=== PATIENT | female | born 1975 | race Caucasian/White ===

== ENCOUNTER 2019-02-14 08:22 | Day surgery (SDC) | payer OTHER ==
[2019-02-14] MEDS ORDERED: DEXAMETHASONE SODIUM PHOSPHATE 10 MG/ML VIAL ONE (08:48)
[2019-02-14] MEDS ORDERED: MIDAZOLAM HCL 2 MG/2 ML VIAL ONE (08:48)
[2019-02-14] MEDS ORDERED: LIDOCAINE HCL 2% PF 100MG/5ML VIAL IJ ONE (08:48)
[2019-02-14] MEDS ORDERED: ONDANSETRON HCL/PF 4 MG/ 2ML VIAL ONE (08:48)
[2019-02-14] MEDS ORDERED: LIDOCAINE HCL 1% PF 300MG/30ML VIAL ONE (08:48)
[2019-02-14] MEDS ORDERED: SODIUM CHLORIDE IRRIG SOLUTION 3,000 ML IRRIG.SOLN IR ONE (08:48)
[2019-02-14] MEDS ORDERED: CLINDAMYCIN PHOSPHATE 900 MG/6 ML VIAL ONE (08:48)
[2019-02-14] MEDS ORDERED: fentaNYL CITRATE/PF 100 MCG/2 ML INJ. ONE ×3 (08:48→12:26)
[2019-02-14] MEDS ORDERED: ROCURONIUM BROMIDE 10 MG/ML 5ML VIAL ONE (08:48)
[2019-02-14] MEDS ORDERED: LACTATED RINGERS 1,000 ML IV.SOLN IV ONE ×2 (08:48)
[2019-02-14] MEDS ORDERED: HYDROmorphone HCL/PF 1 MG/ML VIAL ONE ×2 (08:48→11:58)
[2019-02-14] MEDS ORDERED: PROPOFOL 200 MG/20 ML VIAL IV ONE (08:48)
[2019-02-14] MEDS ORDERED: SUGAMMADEX SODIUM 200 MG/2 ML VIAL IV ONE (08:48)
[2019-02-14] MEDS ORDERED: SCOPOLAMINE HYDROBROMIDE 1.5MG/72HR PATCH TD ONE (08:48)
[2019-02-14] MEDS ORDERED: BUPIV. HCL 0.25% (2.5MG/ML)/EPI. (1:200,000) PF 10 ML VIAL IM ONE (08:48)
[2019-02-14] MEDS ORDERED: SEVOFLURANE 250 ML LIQUID IH ONE (08:48)
[2019-02-14] MEDS ORDERED: FAMOTIDINE 20 MG/2 ML VIAL IV ONE (08:48)
[2019-02-14] MEDS ORDERED: LABETALOL HCL 20 MG/4 ML SYRINGE IV ONE (08:48)
[2019-02-14] MEDS ORDERED: PROMETHAZINE HCL 25 MG/ML VIAL ONE ×2 (08:48→12:05)
[2019-02-14] MEDS ORDERED: 0.9 % SODIUM CHLORIDE 1,000 ML IV ONE (13:43)
--- NOTE | 2019-02-18 15:22 | Operative Note ---
PREOPERATIVE DIAGNOSIS: 1. Morbid obesity. 2. Gastroesophageal reflux disease. 3. Hyperlipidemia. POSTOPERATIVE DIAGNOSIS: 1. Morbid obesity. 2. Gastroesophageal reflux disease. 3. Hyperlipidemia. 4. Extensive upper and midabdominal adhesions. PROCEDURES PERFORMED: 1. Extensive laparoscopic lysis of adhesions. 2. Laparoscopic vertical sleeve gastrectomy. 3. Upper gastrointestinal endoscopy. SURGEON: Edis Mcfadden M.D. INDICATIONS FOR PROCEDURE: Ms. Yao is a 43-year-old female who has a history of multiple previous open abdominal surgeries. The patient has features of morbid obesity. She was noted to have a weight of 245 pounds with a BMI of 47 with the above-listed comorbidities. The patient was advised laparoscopic vertical sleeve gastrectomy and lysis of adhesions. The patient showed understanding and agreed to proceed. DESCRIPTION OF PROCEDURE: After explaining to the patient in detail and informed consent was obtained, the patient was identified in the preoperative holding area. The patient was transferred to the operating room and was placed in supine position. Sequential compressive devices were placed for DVT prophylaxis. Preoperative antibiotics were given. After induction of anesthesia, the abdomen was prepped and draped in a sterile fashion. Through a left upper quadrant 1-cm incision, and using Optiview technique, the peritoneal cavity was entered and pneumoperitoneum was created. Thereafter, under direct vision, a 5-mm trocar was placed in the left flank as the patient was noted to have extensive upper abdominal adhesions and I did not have space to place another port. I started to do adhesiolysis using LigaSure and blunt dissection. Lysis of adhesions was continued for at least 35 minutes to facilitate subsequent placement of the ports. Once all the adhesiolysis was performed, I then placed a 5-mm trocar in the left midabdomen, a 15-mm trocar was placed in the right midabdomen, and another 5-mm trocar was placed in the right subcostal region. Through a 1-cm incision in the epigastrium, a Jim retractor was introduced and the left lobe of the liver was retracted. On initial inspection, the patient did not have any evidence of hiatal hernia. Using LigaSure, I then took down the gastroepiploic vessels along the greater curvature of the stomach. I then continued dissection superiorly. The short gastric vessels were taken down. The gastrophrenic ligament was divided and the Angle of His was mobilized. Distally, the gastroepiploic vessels were taken down up to about 4 cm proximal to the pylorus. At this point, a #36 [place] orogastric ViSiGi tube was inserted into the stomach and using this bougie as a guide, the stomach was divided in a vertical fashion with multiple Endo KIRK Covidien Black Load Staplers. The first firing was directed outwards towards the greater curvature. Subsequent firings were directed towards the Angle of His to create a loose sleeve around the #36 [place] bougie. At this point, the orogastric tube was removed. An upper GI endoscopy was performed at this point. The scope was introduced into the esophagus and was gradually advanced into the stomach. The sleeve appeared to be of adequate size. The stomach was insufflated with air and an air leak test was performed by irrigation of fluid along the staple line. There was no leak noted. The scope was then removed. Absolute hemostasis was ensured. The abdomen was then deflated and the incisions were closed with 4-0 Monocryl. Dermabond was applied. The patient was stable at the end of the procedure. The patient was awakened from anesthesia and was transferred to the recovery room in stable condition. ESTIMATED BLOOD LOSS: Approximately 20 mL. CONDITION OF THE PATIENT: Stable. FLUIDS GIVEN: Per Anesthesia note. SPECIMEN(S) SENT: Sleeve gastrectomy specimen. COMPLICATIONS: None. ANESTHESIA: General. Edis Mcfadden M.D. JL/aileen (Please copy [facility] provider when applicable) Job #[id number] [place]
== END 2019-02-14 13:14 | disposition other institution (70) ==
LOC: OPSURG 08:22
PROVIDERS: ATTEND Surgery
DX: E66.01 Morbid (severe) obesity due to excess calories (principal); K21.9 Gastro-esophageal reflux disease without esophagitis; K66.0 Peritoneal adhesions (postprocedural) (postinfection); E78.5 Hyperlipidemia, unspecified; Z68.42 Body mass index [BMI] 45.0-49.9, adult
CPT/HCPCS: 43235; 43775; J1170; J2001; J2250; J2405; J2550; J2704; J3010; A9270-GY; J7030; J7120

== ENCOUNTER 2019-02-14 13:15 | Inpatient (IN) | payer OTHER ==
[2019-02-14] MEDS ORDERED: MORPHINE SULFATE 2 MG/ML VIAL ONE (15:17)
[2019-02-14] MEDS ORDERED: ONDANSETRON HCL/PF 4 MG/ 2ML VIAL IVP PRN (16:23)
[2019-02-14] MEDS ORDERED: MORPHINE SULFATE 2 MG/ML VIAL IV PRN (16:23)
[2019-02-14] MEDS ORDERED: ACETAMINOPHEN 1,000 MG/100 ML INJ IV PRN (16:23)
[2019-02-14] MEDS: CLINDAMYCIN PHOSPHATE/D5W 600 MG/50 ML PIGGYBACK IV SCH (18:46)
[2019-02-14] MEDS: 0.9 % SODIUM CHLORIDE 1,000 ML IV SCH (20:43)
[2019-02-14] MEDS ORDERED: IPRATROPIUM/ALBUTEROL SULFATE 3 ML AMPUL.NEB NEB PRN (20:50)
[2019-02-14] MEDS: FAMOTIDINE 20 MG/2 ML VIAL IV SCH (23:16)
[2019-02-15] MEDS: HYDROcodone-ACETAMIN 7.5-325/15ML SOLN UD CUP PO PRN ×5 (02:16→17:58)
[2019-02-15] MEDS: 0.9 % SODIUM CHLORIDE 1,000 ML IV SCH ×3 (03:01→18:00)
[2019-02-15] MEDS: CLINDAMYCIN PHOSPHATE/D5W 600 MG/50 ML PIGGYBACK IV SCH (03:31)
[2019-02-15 06:53] LABS: eGFR (Non-African) > 60
[2019-02-15 06:54] LABS: BASOPHILS % 0.5 % (0.0-1.5); NEUTROPHILS # 11.4 # k/uL (1.4-7.7)
--- NOTE | 2019-02-15 07:46 | Inpatient Progress Note ---
Subjective - Required Recertification Statement I anticipate X number of days because-include discharge plan: 1 - Review of Systems Events since last encounter: Patient is lying in bed this morning awake. She states that she did not get much sleep. She was having a lot of discomfort last night. She states that pain is improving. She has had some nausea and moderate discomfort from the gas. She denies any chest pain or shortness of breath. She has been up ambulating in the halls and using incentive spirometer while awake. General: Denies: Chills, Night Sweats HEENT: Denies: Head Aches, Visual Changes, Dysphasia Pulmonary: Denies: Dyspnea Cardiovascular: Denies: Chest Pain, Light Headedness Gastrointestinal: Nausea, Vomiting, Abdominal Pain (s/p LSG) Genitourinary: Denies: Dysuria Musculoskeletal: Denies: Back Pain Neurological: Denies: Weakness Objective - Exam Vitals and I&O: Vital Signs Temp 100.7 F H 02/15/19 05:45 Pulse 77 02/15/19 05:45 Resp 22 02/15/19 05:45 BP 130/71 02/15/19 05:45 Pulse Ox 97 02/15/19 06:00 Intake & Output 02/14/19 02/14/19 02/15/19 11:59 23:59 11:59 Output Total 775 Balance -775 Output: Urine 775 General: Alert, Oriented to Person, Oriented to Place, Oriented to Time, Cooperative, Mild distress, Morbidly Obese HEENT: Atraumatic, PERRLA, Mouth Mucous membr. moist/Connell, Nose Mucous membr. moist/Connell Neck: No JVD, +2 carotid pulse wo bruit Lungs: Clear to auscultation, Normal air movement, Speaks full Sentences Cardiovascular: Normal S1, Normal S2, Tachycardia Abdomen: Soft, Decreased Bowel Sounds Extremities: No edema, Normal pulses, No tenderness/swelling Skin: Warm, Dry, Pale, Other (incisions x5 intact without redness/erythema- skin adhesive intact) Neurological: Normal speech, Strength Equal Bilat, Sensation intact Psych/Mental Status: Mental status NL, Mood NL, Appropriate Affect, Intact Judgment - Results Results: Laboratory Results WBC 14.90 K/ul (4.00-12.00) H 02/15/19 05:00 RBC 3.64 M/ul (3.90-5.20) L 08/23/19 05:00 Hgb 11.3 g/dL (11.5-16.0) L 02/15/19 05:00 Hct 33.5 % (34.5-46.5) L 02/15/19 05:00 MCV 92.0 fl (80.0-100.0) 02/15/19 05:00 MCH 31.0 pg (28.0-34.0) 02/15/19 05:00 MCHC 33.6 g/dL (30.0-36.0) 02/15/19 05:00 RDW 13.5 % (11.3-14.3) 02/15/19 05:00 Plt Count 424 K/mm3 (130-400) H 02/15/19 05:00 Neut % (Auto) 76.5 % (39.0-79.0) 02/15/19 05:00 Lymph % (Auto) 15.3 % (16.0-50.0) L 02/15/19 05:00 [place] % (Auto) 7.0 % (0.0-11.0) 02/15/19 05:00 Eos % (Auto) 0.7 % (0.0-6.8) 02/15/19 05:00 Baso % (Auto) 0.5 % (0.0-1.5) 02/15/19 05:00 Neut # (Auto) 11.4 # k/uL (1.4-7.7) H 02/15/19 05:00 Lymph # (Auto) 2.3 # k/uL (0.6-4.0) 02/15/19 05:00 [place] # (Auto) 1.0 # k/uL (0.0-0.9) H 02/15/19 05:00 Eos # (Auto) 0.1 # k/uL (0.0-0.6) 02/15/19 05:00 Baso # (Auto) 0.1 # k/uL (0.0-0.5) 02/15/19 05:00 Sodium 140 mmol/L (137-145) 02/15/19 05:00 Potassium 3.9 mmol/L (3.5-5.1) 02/15/19 05:00 Chloride 101 mmol/L (98-107) 02/15/19 05:00 Carbon Dioxide 23 mmol/L (22-30) 02/15/19 05:00 Anion Gap 19.9 02/15/19 05:00 BUN 6 mg/dL (7-17) L 02/15/19 05:00 Creatinine 0.44 mg/dL (0.52-1.04) L 02/15/19 05:00 Est GFR ( Amer) > 60 (60-) 02/15/19 05:00 Est GFR (Non-Af Amer) > 60 (60-) 02/15/19 05:00 Glucose 224 mg/dL (74-106) H 02/15/19 05:00 Calcium 9.7 mg/dL (8.4-10.2) 02/15/19 05:00 Total Bilirubin 0.5 mg/dL (0.2-1.3) 02/15/19 05:00 AST 88 U/L (15-46) H 02/15/19 05:00 ALT 71 U/L (13-69) H 02/15/19 05:00 Alkaline Phosphatase 120 U/L (38-126) 02/15/19 05:00 Total Protein 7.4 g/dL (6.3-8.2) 02/15/19 05:00 Albumin 4.5 g/dL (3.5-5.0) 02/15/19 05:00 Assessment/Plan - Assessment/Plan (1) Anxiety and depression Status: Acute Current Visit: Yes Assessment: Will monitor closely; stable at this time Plan: Will continue to hold meds at this time (2) COPD (chronic obstructive pulmonary disease) Status: Acute Current Visit: Yes Assessment: Patient has SOA with exertion d/t obesity; LCTA; No SOA at rest Plan: Duonebs ordered as needed; will continue to monitor; will check pulse ox (3) Hypertension Status: Acute Current Visit: Yes Qualifiers: Hypertension type: essential hypertension Qualified Code(s): I10 - Essential (primary) hypertension Assessment: Blood pressures are slightly elevated 138/78; denies any chest pain Plan: Will continue to hold medications at this time (4) Morbid obesity due to excess calories Status: Acute Current Visit: Yes Assessment: Patient tolerating ice chips and water; some nausea Plan: Will advance diet to clear liquids today (5) Nausea and vomiting Status: Acute Current Visit: Yes Assessment: Patient still experiencing some nausea- no vomiting Plan: Will continue with IV Zofran and phenergan; IV pepcid BID (6) Status post gastric surgery Status: Acute Current Visit: Yes Assessment: Patient experiencing nausea; has been ambulating, wearing SCDs while in bed, using incentive spirometry, patient receiving lovenox to prevent DVT Plan: Patient getting IV fluids for hydration, IV pain meds, and IV antiemetics. Lovenox and SCDs to help prevent DVTs, IS and frequent ambulation will be implemented. Patient eating ice chips and will advance diet to clear liquids as tolerated once nausea and vomiting is controlled. Will continue with Pepcid IV BID for GI upset
[2019-02-15] MEDS: ENOXAPARIN SODIUM 40 MG/0.4 ML DISP.SYRIN SQ SCH (09:14)
[2019-02-15] MEDS: FAMOTIDINE 20 MG/2 ML VIAL IV SCH ×2 (09:14→20:56)
[2019-02-15] MEDS: ALBUTEROL 90MCG/PUFF INHALER IH SCH ×3 (09:46→23:16)
[2019-02-15] MEDS: Non-Formulary 1 EACH (Budesonide/Formoterol Fumarate [Symbicort 160-4.5 Mcg Inhaler] 2 PUF IH SCH ×2 (10:22→23:16)
[2019-02-15] MEDS ORDERED: KETOROLAC TROMETHAMINE 30 MG/1ML VIAL IV PRN (11:00)
[2019-02-15] MEDS: PROMETHAZINE HCL 25 MG in 0.9 % SODIUM CHLORIDE 50 ML IV PRN ×2 (13:10→21:03)
--- NOTE | 2019-02-15 14:03 | History and Physical Report ---
History of Present Illnes - History of Present Illness Reason for Visit: S/P LSG History of Present Illness: Patient is a 43-year-old female who has tried multiple diets and exercise programs with no success. She has always struggled with her weight which has worsened since having children. Patient and surgeon decided to proceed with gastric sleeve procedure. Procedure went well- She will be admitted and monitored s/p surgical intervention. Patient has been on a liquid diet prior to surgery so she is a risk of dehydration s/p surgery. She will be admitted for IV hydration to help hydrate patient until she is able to tolerate a sufficient oral intake, will treat pain with IV medication until patient is able to tolerate oral meds, IV antiemetics to help reduce episodes of nausea and/or vomiting. Patient will be monitored closely using telemetry s/p surgery d/t HTN. Will encourage incentive spirometer for COPD and will monitor patient closely. Patient appears very uncomfortable s/p surgery. - Past Medical History Cardiac: HTN Pulmonary: Asthma, COPD Gastrointestinal: GERD Psych: Anxiety, Depression, Other (ADHD) Grav: 11 Para: 6 Ab: 5 - Past Surgical History Past Surgical History: Hysterectomy, Hernia Repair (ventral), Tubal Ligation, Other (D&C X5, Liver surgery, sinus surgery) - Past Family History Mother Family History: Cancer, CAD, CVA, Hypertension Father Family History: - Past Social History Smoke: Quit (11/2018) Alcohol: None Drugs: Marijuana Lives: With Family Domestic Violence: Negative - Health Maintenance Health Maintenance: Cholesterol, Mammogram Influenza Vaccine: No Pneumonia Vaccine: No Resuscitation Status: Resusciation Status Resuscitation Status Full Code Review of Systems - Review of Systems Constitutional: negative: Fever, Chills Eyes: negative: pain, vision change ENT: negative: Ear Pain, Ear Discharge, Throat Pain Respiratory: SOB with Excertion. negative: Cough Cardiovascular: negative: Chest Pain, Light Headedness Gastrointestinal: Nausea, Vomiting, Abdominal Pain (s/p surgery) Genitourinary: negative: Dysuria Musculoskeletal: Back Pain Skin: negative: Rash Neurological: Weakness - Medications/Allergies Allergies/Adverse Reactions: Allergies Allergy/AdvReac Type Severity Reaction Status Date / Time Penicillins Allergy Verified 02/14/19 13:15 Current Inpatient Medications: Current Inpatient Medications Acetaminophen (Ofirmev) 1,000 mg IV Q6H PRN PRN Reason: Mild Pain (Score 1-4) Hydrocodone Bitart/Acetaminophen (Hycet 7.5-325mg/15 Ml Ud Cup) 15 ml PO Q4H PRN PRN Reason: Moderate Pain (Score 5-7) Stop: 02/18/19 16:22 Last Admin: 02/15/19 13:55 Dose: 15 ml Albuterol Sulfate (Ventolin Hfa) 1 puff IH Q6H [facility] Stop: 03/17/19 06:59 Last Admin: 02/15/19 13:47 Dose: 1 puff Albuterol/Ipratropium (Duoneb) 3 ml NEB Q4 PRN PRN Reason: Wheezing Stop: 03/16/19 20:49 Enoxaparin Sodium (Lovenox) 40 mg SQ DAILY [facility] Stop: 03/01/19 20:52 Last Admin: 02/15/19 09:14 Dose: 40 mg Famotidine (Pepcid) 20 mg IV BID [facility] Stop: 03/16/19 20:59 Last Admin: 02/15/19 09:14 Dose: 20 mg Sodium Chloride (Normal Saline) 1,000 mls @ 150 mls/hr IV Q8H [facility] Last Admin: 02/15/19 10:47 Dose: 150 mls/hr Promethazine HCl 25 mg/ Sodium (Chloride) 51 mls @ 204 mls/hr IV Q6H PRN PRN Reason: Nausea / Vomiting Stop: 02/15/19 23:59 Last Admin: 02/15/19 13:10 Dose: 204 mls/hr Ketorolac Tromethamine (Toradol) 30 mg IV Q6H PRN PRN Reason: For Mild Pain Stop: 02/19/19 10:59 Miscellaneous (Budesonide/Formoterol Fumarate [Symbicort 160-4.5 Mcg Inhaler]) 2 puff IH BID [facility] Stop: 03/17/19 08:59 Last Admin: 02/15/19 10:22 Dose: 2 puff Morphine Sulfate () 2 mg IV Q2H PRN PRN Reason: Severe Pain (Score 8-10) Last Admin: 02/14/19 19:56 Dose: 2 mg Ondansetron HCl (Zofran) 4 mg IVP Q6H PRN PRN Reason: Nausea / Vomiting Stop: 02/15/19 23:59 Exam - Exam Vital Signs: Vital Signs (72 hours) 02/14/19 02/14/19 02/14/19 20:50 21:43 22:45 Temperature 98.4 F Pulse Rate 88 Pulse Rate [ 64 64 Right] Respiratory 22 22 Rate Blood Pressure 144/90 [Right Arm] O2 Sat by Pulse 94 94 Oximetry 02/15/19 02/15/19 02/15/19 00:50 02:00 04:00 Temperature 100.8 F H Pulse Rate Pulse Rate [ 80 Right] Respiratory 22 Rate Blood Pressure 150/67 [Right Arm] O2 Sat by Pulse 98 95 95 Oximetry 02/15/19 02/15/19 02/15/19 05:32 05:45 06:00 Temperature 100.7 F H Pulse Rate Pulse Rate [ 80 77 Right] Respiratory 22 22 Rate Blood Pressure 130/71 [Right Arm] O2 Sat by Pulse 95 97 Oximetry 02/15/19 02/15/19 02/15/19 09:06 10:00 13:27 Temperature 98.8 F 97.1 F L Pulse Rate Pulse Rate [ 61 99 H Right] Respiratory 18 18 Rate Blood Pressure 128/59 138/71 [Right Arm] O2 Sat by Pulse 95 95 99 Oximetry General: Alert, Oriented to Person, Oriented to Place, Oriented to Time, Cooperative, Moderate distress, Morbidly Obese HEENT: Atraumatic, PERRLA, Mouth Mucous membr. moist/Peerless, Nose Mucous membr. moist/Peerless Neck: Normal Range of Motion Carotids: No bruit Lungs: Clear to auscultation, Normal air movement Cardiovascular: Normal S1, Normal S2, Tachycardia Peripheral Edema: None Peripheral Pulses: 2+ Abdomen: Soft, Decreased Bowel Sounds Integumentary: Warm, Dry, Pale, Other (Incision x 5 without redness/erythema- skin adhesive intact) Extremities: No edema, Normal pulses, No tenderness/swelling Neurological: Normal speech, Sensation intact, Generalized Weakness Psych/Mental Status: Mental status NL, Mood NL, Appropriate Affect, Intact Judgment - Laboratory Results Laboratory Results: Laboratory Results 02/15/19 02/15/19 05:00 05:00 WBC 14.90 H RBC 3.64 L Hgb 11.3 L Hct 33.5 L MCV 92.0 MCH 31.0 MCHC 33.6 RDW 13.5 Plt Count 424 H Neut % (Auto) 76.5 Lymph % (Auto) 15.3 L [place] % (Auto) 7.0 Eos % (Auto) 0.7 Baso % (Auto) 0.5 Neut # (Auto) 11.4 H Lymph # (Auto) 2.3 [place] # (Auto) 1.0 H Eos # (Auto) 0.1 Baso # (Auto) 0.1 Sodium 140 Potassium 3.9 Chloride 101 Carbon Dioxide 23 Anion Gap 19.9 BUN 6 L Creatinine 0.44 L Est GFR ( Amer) > 60 Est GFR (Non-Af Amer) > 60 Glucose 224 H Calcium 9.7 Total Bilirubin 0.5 AST 88 H ALT 71 H Alkaline Phosphatase 120 Total Protein 7.4 Albumin 4.5 Assessment/Plan - Assessment/Plan (1) Status post gastric surgery Status: Acute Current Visit: Yes Plan: Plan to admit for IV hydration, IV pain meds, and IV antiemetics. Lovenox and SCDs to help prevent DVTs, IS and frequent ambulation will be implemented. Start ice chips and advance diet as tolerated. (2) Morbid obesity due to excess calories Status: Acute Current Visit: Yes Plan: Patient is s/p gastric sleeve. We will assist patient with implementing gastric sleeve diet protocol starting with ice chips and clear liquids and advancing as tolerated. (3) COPD (chronic obstructive pulmonary disease) Status: Acute Current Visit: Yes Assessment: LCTA Plan: Will monitor resp. status and check pulse ox; duonebs ordered as needed; will use incentive spirometer (4) Hypertension Status: Acute Current Visit: Yes Qualifiers: Hypertension type: essential hypertension Qualified Code(s): I10 - Essential (primary) hypertension Plan: Will hold medication until able to tolerate PO- will monitor blood pressures closely (5) Anxiety and depression Status: Acute Current Visit: Yes Plan: Will hold meds and monitor; will implement if needed (6) Nausea and vomiting Status: Acute Current Visit: Yes Plan: Pepcid IV BID ordered; IV antiemetics, and IVFs VTE Assessment - RISK FACTOR SCORE VTE RISK FACTOR SCORES: AGE 40-60 YEARS, OBESITY, MAJOR SURGERY/ANESTHESIA TIME > 1 HOUR - RISK VTE HIGH RISK: SCORE OF 3-4 (RISK PROXIMAL DVT 4-8%) PROPHYLAXIS NEEDED (Lovenox daily, Incentive spirometer, SCDs while in bed, Frequent ambulation)
[2019-02-16] MEDS ORDERED: PROMETHAZINE HCL 25 MG in 0.9 % SODIUM CHLORIDE 50 ML IV PRN (00:15)
[2019-02-16] MEDS ORDERED: ONDANSETRON HCL/PF 4 MG/ 2ML VIAL IVP PRN (00:15)
[2019-02-16] MEDS: 0.9 % SODIUM CHLORIDE 1,000 ML IV SCH (00:40)
[2019-02-16] MEDS: ALBUTEROL 90MCG/PUFF INHALER IH SCH (05:43)
--- NOTE | 2019-02-16 07:02 | Discharge Summary ---
Discharge Summary - Discharge [facility] Admission Date: 02/14/19 Discharge Date: 02/16/19 Discharge To: Home History of Present Illness: Patient is a 43-year-old female who has tried multiple diets and exercise programs with no success. She has always struggled with her weight which has worsened since having children. Patient and surgeon decided to proceed with gastric sleeve procedure. Procedure went well- She will be admitted and monitored s/p surgical intervention. Patient has been on a liquid diet prior to surgery so she is a risk of dehydration s/p surgery. She will be admitted for IV hydration to help hydrate patient until she is able to tolerate a sufficient oral intake, will treat pain with IV medication until patient is able to tolerate oral meds, IV antiemetics to help reduce episodes of nausea and/or vomiting. Patient will be monitored closely using telemetry s/p surgery d/t HTN. Will encourage incentive spirometer for COPD and will monitor patient closely. Patient appears very uncomfortable s/p surgery. Condition at Discharge: Stable Home Medications: Ambulatory Orders Medication Instructions Recorded Albuterol Sulfate [Proair Hfa] 2 inh INH Q6H 02/14/19 Budesonide/Formoterol Fumarate 2 puff IH BID 02/14/19 [Symbicort 160-4.5 Mcg Inhaler] Dextroamphetamine/Amphetamine 10 mg PO DAILY 02/14/19 [Amphetamine Salts 10 mg Tablet] Fluticasone Propionate [Flonase] 1 spr IN DAILY 02/14/19 Folic Acid 1 mg PO DAILY 02/14/19 Gabapentin [Neurontin] 600 mg PO TID 02/14/19 Hydrochlorothiazide 25 mg PO DAILY 02/14/19 Hydroxyzine HCl 25 mg PO TID PRN 02/14/19 Ibuprofen 800 mg PO TID PRN 02/14/19 Icosapent Ethyl [Vascepa] 2 cap PO BID 02/14/19 Ipratropium/Albuterol Sulfate 1 inh INH QID 02/14/19 [Duoneb] Loratadine 10 mg PO DAILY 02/14/19 Ranitidine HCl 150 mg PO BID 02/14/19 Sertraline HCl [Zoloft] 150 mg PO DAILY 02/14/19 Simvastatin 20 mg PO HS 02/14/19 Tiotropium [place] [Spiriva] 1 inh INH DAILY 02/14/19 Tizanidine HCl 1 tab PO TID PRN 02/14/19 Varenicline Tartrate [Chantix] 1 tab PO BID 02/14/19 Zolpidem Tartrate 10 mg PO HS 02/14/19 oxyCODONE HCL/ACETAMINOPHEN 1 each PO TID PRN 02/14/19 [Percocet 7.5-325] Consultations this Visit: None Procedures this Visit: None Allergies/Adverse Reactions: Allergies Allergy/AdvReac Type Severity Reaction Status Date / Time Penicillins Allergy Verified 02/14/19 13:15 Patient Problems: Current Active Problems Problem Status Onset Anxiety and depression Acute COPD (chronic obstructive pulmonary disease) Acute Hypertension Acute Morbid obesity due to excess calories Acute Nausea and vomiting Acute Status post gastric surgery Acute Discharge Summary: Patient is a 43-year-old female that underwent the gastric sleeve procedure. She had some issues with nausea and dry heaves but has done well. She has been very cooperative with her care by ambulating frequently, using her incentive spirometer, and wearing her SCDs while in bed. She has been compliant with her diet during hospitalization. She is having minimal discomfort at this time and minimal nausea- she has is passing gas and belching. She is aware of discharge instructions and what she can and cannot do post surgical- she is aware of the strict diet she must follow to decrease discomfort and have success after procedure. She has family support and family will be taking her home- medications written by surgeon given to patient. She feels ready to go home. Hospital Course: Patient received IV pain medications, antiemetics, and IVF and was transitioned to oral. She has been up ambulating and using incentive spirometer. - Final Diagnosis (1) Anxiety and depression Problems: Stable- continue on home meds Right or Left: Right (2) COPD (chronic obstructive pulmonary disease) Problems: Stable- continue on home meds Right or Left: Right (3) Hypertension Problems: Stable- continue on home meds Right or Left: Right (4) Morbid obesity due to excess calories Problems: Incision without redness or drainage, positive bowel sounds, minimal discomfort, belching and flatus, no extremity pain or edema, LCTA Right or Left: Right (5) Nausea and vomiting Problems: Script for antiemetic given Right or Left: Right (6) Status post gastric surgery Problems: Continue with bariatric sleeve diet- clear liquids today and start full liquids tomorrow; protein shake 80-100 grams protein Right or Left: Right
[2019-02-16 08:46] VITALS: BP 152/80
[2019-02-16] MEDS: ENOXAPARIN SODIUM 40 MG/0.4 ML DISP.SYRIN SQ SCH (08:50)
[2019-02-16] MEDS: FAMOTIDINE 20 MG/2 ML VIAL IV SCH (08:51)
[2019-02-16] MEDS: HYDROcodone-ACETAMIN 7.5-325/15ML SOLN UD CUP PO PRN (09:05)
[2019-02-16] MEDS: Non-Formulary 1 EACH (Budesonide/Formoterol Fumarate [Symbicort 160-4.5 Mcg Inhaler] 2 PUF IH SCH (09:08)
== END 2019-02-16 10:55 | disposition home or self-care (01) | DRG 621 ==
LOC: SOUTH 13:15
PROVIDERS: ADMIT Nurse Practitioner Family; ATTEND Nurse Practitioner Family
PROC: 0DB64Z3 Excision of Stomach, Percutaneous Endoscopic Approach, Vertical (ICD-10-PCS; principal; 2019-02-14)
DX: E66.01 Morbid (severe) obesity due to excess calories (principal); I10 Essential (primary) hypertension; J44.9 Chronic obstructive pulmonary disease, unspecified; K21.9 Gastro-esophageal reflux disease without esophagitis; F41.9 Anxiety disorder, unspecified; F32.9 Major depressive disorder, single episode, unspecified; Z98.51 Tubal ligation status; Z90.710 Acquired absence of both cervix and uterus
CPT/HCPCS: 80053; 85025; 97116; 97161; 97165; 97530; A9270; J1650; J1885; J2270; J2405; J2550; J7030; 99024; 99221; 99231; 99238